=== PATIENT | female | born 1995 | race Two or more races ===

== ENCOUNTER → 2017-06-30 | Outpatient (CLI) | payer OTHER | END | disposition home or self-care (01) | LOC: PPHC LAB 15:42 | DX: Z02.89 Encounter for other administrative examinations (principal) ==

== ENCOUNTER 2018-07-27 07:12 | Outpatient (CLI) | payer OTHER | END 2018-07-27 16:00 | disposition home or self-care (01) | LOC: LAB 07:12 | DX: E03.8 Other specified hypothyroidism (principal); Z13.1 Encounter for screening for diabetes mellitus; E78.2 Mixed hyperlipidemia; E55.9 Vitamin D deficiency, unspecified; Z11.3 Encounter for screening for infections with a predominantly sexual mode of transmission; Z11.4 Encounter for screening for human immunodeficiency virus [HIV] ==

== ENCOUNTER 2018-08-24 06:24 | Outpatient (CLI) | payer OTHER | END 2018-08-24 14:59 | disposition home or self-care (01) | LOC: LAB 06:24 | DX: E28.2 Polycystic ovarian syndrome (principal); E11.9 Type 2 diabetes mellitus without complications; N91.2 Amenorrhea, unspecified; N92.1 Excessive and frequent menstruation with irregular cycle; E03.8 Other specified hypothyroidism ==

== ENCOUNTER 2018-10-31 10:39 | Outpatient (CLI) | payer OTHER | END 2018-10-31 10:44 | disposition home or self-care (01) | LOC: LAB 10:39 | DX: J11.1 Influenza due to unidentified influenza virus with other respiratory manifestations (principal); A49.3 Mycoplasma infection, unspecified site ==

== ENCOUNTER → 2019-05-07 08:59 | Outpatient (CLI) | payer OTHER | END | disposition home or self-care (01) | LOC: LAB 08:59 | DX: J11.1 Influenza due to unidentified influenza virus with other respiratory manifestations (principal); J20.0 Acute bronchitis due to Mycoplasma pneumoniae ==

== ENCOUNTER 2019-07-11 14:04 | Emergency (ER) | payer OTHER ==
[~2019-07-11] VITALS: Ht 172.7 cm; Wt 87.1 kg
== END 2019-07-11 20:52 | disposition home or self-care (01) ==
LOC: ER
DX: N83.291 Other ovarian cyst, right side (principal); N39.0 Urinary tract infection, site not specified

== ENCOUNTER 2019-10-05 12:37 | Emergency (ER) | payer OTHER ==
[~2019-10-05] VITALS: Ht 172.7 cm; Wt 86.2 kg
[2019-10-05] MEDS ORDERED: LEVOTHYROXINE25 MCG (12:42)
== END 2019-10-05 16:41 | disposition home or self-care (01) ==
LOC: ER 12:37
DX: J02.9 Acute pharyngitis, unspecified (principal); B96.0 Mycoplasma pneumoniae [M. pneumoniae] as the cause of diseases classified elsewhere; Z03.818 Encounter for observation for suspected exposure to other biological agents ruled out

== ENCOUNTER → 2019-11-11 15:36 | Outpatient (CLI) | payer OTHER ==
[~2019-11-11 15:36] MED LIST: LEVOTHYROXINE25 MCG
== END | disposition home or self-care (01) ==
LOC: RAD 15:36
PROVIDERS: ATTEND Chiropractor Sports Physician
DX: M46.02 Spinal enthesopathy, cervical region (principal); M46.04 Spinal enthesopathy, thoracic region

== ENCOUNTER 2019-12-28 08:56 | Outpatient (CLI) | payer OTHER | END 2019-12-28 15:00 | disposition home or self-care (01) | LOC: LAB 08:56 | PROVIDERS: ATTEND General Practice | DX: J11.1 Influenza due to unidentified influenza virus with other respiratory manifestations (principal); R05 Cough; Z20.828 Contact with and (suspected) exposure to other viral communicable diseases; R06.2 Wheezing; R50.9 Fever, unspecified ==

== ENCOUNTER → 2020-01-09 | Outpatient (CLI) | payer OTHER | END | disposition home or self-care (01) | LOC: RAD 11:51 | PROVIDERS: ATTEND General Practice | DX: M54.89 Other dorsalgia (principal) ==

== ENCOUNTER 2020-01-14 09:23 | Outpatient (CLI) | payer OTHER | END 2020-01-14 13:49 | disposition home or self-care (01) | LOC: LAB 09:23 | PROVIDERS: ATTEND General Practice | DX: E78.49 Other hyperlipidemia (principal); E55.9 Vitamin D deficiency, unspecified; R42 Dizziness and giddiness; N39.0 Urinary tract infection, site not specified; Z00.00 Encounter for general adult medical examination without abnormal findings ==

== ENCOUNTER 2020-01-29 14:42 | Outpatient (CLI) | payer OTHER | END 2020-01-29 15:00 | disposition home or self-care (01) | LOC: LAB 14:42 | PROVIDERS: ATTEND General Practice | DX: R05 Cough (principal); R06.02 Shortness of breath; Z03.818 Encounter for observation for suspected exposure to other biological agents ruled out; Z20.828 Contact with and (suspected) exposure to other viral communicable diseases; R50.9 Fever, unspecified ==

== ENCOUNTER 2020-02-12 13:25 | Outpatient (CLI) | payer OTHER | END 2020-02-12 13:26 | disposition home or self-care (01) | LOC: PPH VACUNA 13:25 | DX: Z23 Encounter for immunization (principal) ==

== ENCOUNTER → 2020-03-29 13:46 | Outpatient (CLI) | payer OTHER | END | disposition home or self-care (01) | LOC: LAB 13:46 | DX: Z20.828 Contact with and (suspected) exposure to other viral communicable diseases (principal) ==

== ENCOUNTER 2020-04-08 09:30 | Outpatient (CLI) | payer OTHER | END 2020-04-08 09:36 | disposition home or self-care (01) | LOC: LAB 09:30 | DX: Z20.828 Contact with and (suspected) exposure to other viral communicable diseases (principal) ==

== ENCOUNTER 2020-08-17 13:48 | Emergency (ER) | payer OTHER ==
[~2020-08-17] VITALS: Ht 172.7 cm; Wt 86.2 kg
== END 2020-08-17 17:05 | disposition home or self-care (01) ==
LOC: ER 13:48
DX: S61.422A Laceration with foreign body of left hand, initial encounter (principal); W26.0XXA Contact with knife, initial encounter; Y93.89 Activity, other specified; Y92.090 Kitchen in other non-institutional residence as the place of occurrence of the external cause; Y99.8 Other external cause status

== ENCOUNTER → 2020-09-17 08:05 | Outpatient (CLI) | payer OTHER | END | disposition home or self-care (01) | LOC: LAB 08:05 | PROVIDERS: ATTEND Internal Medicine | DX: Z20.828 Contact with and (suspected) exposure to other viral communicable diseases (principal) ==

== ENCOUNTER → 2020-09-19 06:10 | Outpatient (CLI) | payer OTHER | END | disposition home or self-care (01) | LOC: LAB 06:10 | PROVIDERS: ATTEND Obstetrics & Gynecology Maternal & Fetal Medicine | DX: E03.8 Other specified hypothyroidism (principal); D63.8 Anemia in other chronic diseases classified elsewhere; N30.90 Cystitis, unspecified without hematuria; E78.00 Pure hypercholesterolemia, unspecified; R73.9 Hyperglycemia, unspecified; K92.1 Melena; Z12.11 Encounter for screening for malignant neoplasm of colon; E55.9 Vitamin D deficiency, unspecified ==

== ENCOUNTER 2020-11-06 09:49 | Outpatient (CLI) | payer OTHER | END 2020-11-06 18:00 | disposition home or self-care (01) | LOC: LAB 09:49 | PROVIDERS: ATTEND Emergency Medicine Pediatric Emergency Medicine | DX: Z03.818 Encounter for observation for suspected exposure to other biological agents ruled out (principal) ==

== ENCOUNTER 2020-11-13 11:31 | Outpatient (CLI) | payer OTHER | END 2020-11-13 14:22 | disposition home or self-care (01) | LOC: LAB 11:31 | PROVIDERS: ATTEND Internal Medicine Pulmonary Disease | DX: J45.31 Mild persistent asthma with (acute) exacerbation (principal) ==

== ENCOUNTER 2021-02-23 08:00 | Outpatient (CLI) | payer OTHER | END 2021-02-23 08:30 | disposition home or self-care (01) | LOC: PPH VACUNA 08:00 | PROVIDERS: ATTEND Emergency Medicine Pediatric Emergency Medicine | DX: Z23 Encounter for immunization (principal) ==

== ENCOUNTER 2021-05-13 12:52 | Outpatient (CLI) | payer OTHER | END 2021-05-13 16:53 | disposition home or self-care (01) | LOC: LAB 12:52 | PROVIDERS: ATTEND General Practice | DX: R05.8 Other specified cough (principal); J11.1 Influenza due to unidentified influenza virus with other respiratory manifestations; R06.2 Wheezing; Z20.828 Contact with and (suspected) exposure to other viral communicable diseases ==

== ENCOUNTER 2021-05-26 13:22 | Emergency (ER) | payer OTHER ==
[~2021-05-26] VITALS: Ht 172.7 cm; Wt 93.0 kg
== END 2021-05-26 18:32 | disposition home or self-care (01) ==
LOC: ER 13:22
DX: J45.909 Unspecified asthma, uncomplicated (principal); R06.2 Wheezing

== ENCOUNTER 2021-07-21 13:19 | Outpatient (CLI) | payer OTHER | END 2021-07-21 13:20 | disposition home or self-care (01) | LOC: LAB 13:19 | PROVIDERS: ATTEND Emergency Medicine | DX: N91.2 Amenorrhea, unspecified (principal) ==

== ENCOUNTER 2021-07-21 17:50 | Emergency (ER) | payer OTHER ==
[~2021-07-21] VITALS: Ht 172.7 cm; Wt 99.8 kg
== END 2021-07-21 21:20 | disposition home or self-care (01) ==
LOC: ER 17:50
DX: R10.84 Generalized abdominal pain (principal)

== ENCOUNTER 2021-07-29 15:14 | Outpatient (CLI) | payer OTHER | END 2021-07-29 15:19 | disposition home or self-care (01) | LOC: RAD 15:14 | PROVIDERS: ATTEND Internal Medicine Pulmonary Disease | DX: J45.41 Moderate persistent asthma with (acute) exacerbation (principal); U07.1 COVID-19 ==

== ENCOUNTER 2021-09-09 07:09 | Outpatient (CLI) | payer OTHER | END 2021-09-09 07:10 | disposition home or self-care (01) | LOC: NUCLEAR 07:09 | PROVIDERS: ATTEND Surgery | DX: R10.9 Unspecified abdominal pain (principal); K30 Functional dyspepsia | CPT/HCPCS: 78226; A9510 ==

== ENCOUNTER → 2021-09-21 07:17 | Outpatient (CLI) | payer OTHER | END | disposition home or self-care (01) | LOC: LAB 07:17 | PROVIDERS: ATTEND Student in an Organized Health Care Education/Training Program | DX: Z34.01 Encounter for supervision of normal first pregnancy, first trimester (principal) ==

== ENCOUNTER 2021-10-15 10:40 | Outpatient (CLI) | payer OTHER | END 2021-10-15 12:54 | disposition home or self-care (01) | LOC: PRENATAL 10:40 | PROVIDERS: ATTEND Obstetrics & Gynecology Maternal & Fetal Medicine | DX: O36.80X0 Pregnancy with inconclusive fetal viability, not applicable or unspecified (principal); O99.280 Endocrine, nutritional and metabolic diseases complicating pregnancy, unspecified trimester; O99.891 Other specified diseases and conditions complicating pregnancy; Z3A.13 13 weeks gestation of pregnancy ==

== ENCOUNTER 2021-10-19 13:54 | Outpatient (CLI) | payer OTHER | END 2021-10-19 14:00 | disposition home or self-care (01) | LOC: LAB 13:54 | DX: E03.8 Other specified hypothyroidism (principal); I10 Essential (primary) hypertension ==

== ENCOUNTER 2021-12-01 08:12 | Outpatient (CLI) | payer OTHER | END 2021-12-01 09:25 | disposition home or self-care (01) | LOC: PRENATAL 08:12 | PROVIDERS: ATTEND Obstetrics & Gynecology Maternal & Fetal Medicine | DX: O35.0XX0 Maternal care for (suspected) central nervous system malformation in fetus, not applicable or unspecified (principal); O35.3XX0 Maternal care for (suspected) damage to fetus from viral disease in mother, not applicable or unspecified; O99.280 Endocrine, nutritional and metabolic diseases complicating pregnancy, unspecified trimester; Z3A.20 20 weeks gestation of pregnancy ==

== ENCOUNTER → 2021-12-04 11:58 | Outpatient (CLI) | payer OTHER | END | disposition home or self-care (01) | LOC: LAB 11:58 | PROVIDERS: ATTEND Internal Medicine | DX: E03.8 Other specified hypothyroidism (principal) ==

== ENCOUNTER 2022-01-04 07:39 | Outpatient (CLI) | payer OTHER | END 2022-01-04 07:50 | disposition home or self-care (01) | LOC: LAB 07:39 | PROVIDERS: ATTEND Internal Medicine | DX: E03.8 Other specified hypothyroidism (principal); I10 Essential (primary) hypertension ==

== ENCOUNTER 2022-01-13 15:56 | Emergency (ER) | payer OTHER ==
[~2022-01-13] VITALS: Ht 170.2 cm; Wt 101.6 kg
== END 2022-01-13 17:57 | disposition home or self-care (01) ==
LOC: ER 15:56
DX: T78.1XXA Other adverse food reactions, not elsewhere classified, initial encounter (principal); X58.XXXA Exposure to other specified factors, initial encounter

== ENCOUNTER 2022-01-27 08:00 | Outpatient (CLI) | payer OTHER | END 2022-01-27 08:05 | disposition home or self-care (01) | LOC: PPH VACUNA 08:00 | PROVIDERS: ATTEND Emergency Medicine Pediatric Emergency Medicine | DX: Z23 Encounter for immunization (principal) ==

== ENCOUNTER 2022-02-05 15:39 | Outpatient (CLI) | payer OTHER | END 2022-02-05 16:00 | disposition home or self-care (01) | LOC: LAB 15:39 | PROVIDERS: ATTEND Specialist | DX: Z34.00 Encounter for supervision of normal first pregnancy, unspecified trimester (principal) ==

== ENCOUNTER 2022-02-08 08:00 | Outpatient (CLI) | payer OTHER | END 2022-02-08 08:10 | disposition home or self-care (01) | LOC: LAB 08:00 | PROVIDERS: ATTEND Surgery | DX: Z34.01 Encounter for supervision of normal first pregnancy, first trimester (principal) ==

== ENCOUNTER 2022-02-19 13:44 | Outpatient (CLI) | payer OTHER | END 2022-02-19 15:01 | disposition home or self-care (01) | LOC: PRENATAL 13:44 | PROVIDERS: ATTEND Obstetrics & Gynecology Maternal & Fetal Medicine | DX: O26.849 Uterine size-date discrepancy, unspecified trimester (principal); O36.8199 Decreased fetal movements, unspecified trimester, other fetus; O99.280 Endocrine, nutritional and metabolic diseases complicating pregnancy, unspecified trimester; Z3A.32 32 weeks gestation of pregnancy ==

== ENCOUNTER 2022-02-25 11:46 | Outpatient (CLI) | payer OTHER | END 2022-02-25 11:47 | disposition home or self-care (01) | LOC: LAB 11:46 | PROVIDERS: ATTEND General Practice | DX: R05.9 Cough, unspecified (principal); R06.02 Shortness of breath; Z20.822 Contact with and (suspected) exposure to COVID-19 ==

== ENCOUNTER 2022-04-15 06:11 | Inpatient (IN) | payer OTHER ==
[~2022-04-15] VITALS: Ht 172.7 cm; Wt 105.2 kg
[2022-04-15] MEDS ORDERED: PRENATAL + DHA1 EAC1 (08:29)
[2022-04-17] MEDS ORDERED: IBUPROFEN800 MG PO (10:47)
[2022-04-17] MEDS ORDERED: RHOGAM ULTR1500 UNIT IM (10:49)
== END 2022-04-18 18:06 | disposition home or self-care (01) | DRG 788 ==
LOC: LDR 06:11 → OB/GYN 06:11 → LDR 06:36 → OB/GYN 04-16 01:22
PROVIDERS: ADMIT Specialist; ATTEND Specialist
PROC: 4A1HXCZ Monitoring of Products of Conception, Cardiac Rate, External Approach (ICD-10-PCS; 2022-04-15)
PROC: 10D00Z1 Extraction of Products of Conception, Low, Open Approach (ICD-10-PCS; principal; 2022-04-16)
DX: O62.0 Primary inadequate contractions (principal); Z3A.40 40 weeks gestation of pregnancy; Z37.0 Single live birth; Z20.822 Contact with and (suspected) exposure to COVID-19

== ENCOUNTER 2023-07-04 15:14 | Inpatient (IN) | payer OTHER ==
[~2023-07-04] VITALS: Ht 152.4 cm; Wt 86.2 kg
[~2023-07-04 15:14] MED LIST changes: +IBUPROFEN800 MG PO; +PRENATAL + DHA1 EAC1; +RHOGAM ULTR1500 UNIT IM
[2023-07-04] MEDS ORDERED: 0.9 % SODIUM CHLORIDE 1,000 ML IV ONE (16:30)
[2023-07-04 17:39] LABS: HEMATOCRIT 18.7 % (36.0-45.00); MEAN CELL VOLUME 92.5 fL (80.00-100.00); MEAN CORPUSCULAR HEMOGLOBIN 33.1 pg (27.00-32.0); MEAN CORPUSCULAR HGB CONC 35.7 g/dl (32.0-36.0); PLATELET COUNT 213 K/uL (150-450); RED BLOOD COUNT 2.02 M/uL (4.00-6.00); RED CELL DISTRIBUTION WIDTH 12.7 % (11.5-14.5)
[2023-07-04 17:42] LABS: HEMOGLOBIN 6.7 g/dL (12.0-15.00)
[2023-07-04 17:43] LABS: INR 0.96; PARTIAL THROMBOPLASTIN TIME 25.1 SECONDS (22.0-34.0); PROTHROMBIN TIME 10.1 SECONDS (9.0-11.5)
[2023-07-04 17:55] LABS: PH,URINE 5.5 (5.0-8.0); URINE APPEARANCE Clear; URINE BILIRRUBIN Negative (NEGATIVE); URINE BLOOD Large; URINE COLOR Yellow; URINE GLUCOSE Negative (NEGATIVE); URINE LEUKOCYTE Trace; URINE NITRATE Negative; URINE PROTEIN Negative (NEGATIVE); URINE UROBILINOGEN 0.2 E.U./dl
[2023-07-04 17:59] LABS: URINE BACTERIA 177.6 uL (0.0-1933); URINE EPITHELIAL CELLS 5.7 uL (0.0-38.8); URINE RBC 319.3 uL (0.0-20.8); URINE WBC 22.3 uL (0.0-23.2)
[2023-07-04 18:04] LABS: CALCIUM 8.7 mg/dL (8.5-10.1); CREATININE SERUM 0.79 mg/dL (0.55-1.02); GFR 85.45; POTASSIUM 3.51 mEq/L (3.5-5.1)
[2023-07-04] MEDS ORDERED: OxyCODONE HCL/APAP UD (PERCOCET) PO PRN (21:30)
[2023-07-05] MEDS ORDERED: ACETAMINOPHEN 500 MG GEL..CAP PO PRN (08:15)
[2023-07-05] MEDS ORDERED: HYPERRHO S-1500 UNIT IM (08:38)
[2023-07-05] MEDS ORDERED: FF) RHO(D) IMMUNE GLOBULIN (POM) IM ONE (08:45)
[2023-07-05] MEDS ORDERED: FERROUS SULFATE 325 MG TABLET.EC PO SCH (09:00)
[2023-07-05 13:46] LABS: T4 FREE 0.85 NG/ML (0.76-1.46); TSH 4.83 uIU/mL (0.358-3.74)
[2023-07-06] MEDS ORDERED: MAGNESIUM HYDROXIDE 30 ML BLIST.PACK PO ONE (13:00)
[2023-07-06] MEDS ORDERED: MINERAL OIL 30 ML BLIST.PACK PO ONE (13:00)
[2023-07-06 18:52] LABS: HEMATOCRIT 28.3 % (36.0-45.00); HEMOGLOBIN 9.9 g/dL (12.0-15.00); MEAN CORPUSCULAR HEMOGLOBIN 30.7 pg (27.00-32.0); PLATELET COUNT 240 K/uL (150-450); RED BLOOD COUNT 3.22 M/uL (4.00-6.00); RED CELL DISTRIBUTION WIDTH 14.5 % (11.5-14.5)
[2023-07-07] MEDS ORDERED: LEVOTHYROXINE SODIUM 50 MCG TABLET PO SCH (06:00)
[2023-07-07] MEDS ORDERED: SYNTHROID50 MCG PO (07:36)
[2023-07-07] MEDS ORDERED: FERROUS SULFAT325 MG PO (07:36)
== END 2023-07-07 12:54 | disposition home or self-care (01) | DRG 779 ==
LOC: ER 15:14 → OB/GYN 20:04
PROVIDERS: General Practice; ADMIT Specialist; ATTEND Specialist
PROC: BU4CZZZ Ultrasonography of Uterus and Ovaries (ICD-10-PCS; principal; 2023-07-04)
PROC: 30233N1 Transfusion of Nonautologous Red Blood Cells into Peripheral Vein, Percutaneous Approach (ICD-10-PCS; 2023-07-05)
DX: O03.6 Delayed or excessive hemorrhage following complete or unspecified spontaneous abortion (principal); O03.89 Complete or unspecified spontaneous abortion with other complications; D64.9 Anemia, unspecified; Z20.822 Contact with and (suspected) exposure to COVID-19; J45.909 Unspecified asthma, uncomplicated; E03.9 Hypothyroidism, unspecified

== ENCOUNTER 2023-07-07 17:14 | Emergency (ER) | payer OTHER ==
[~2023-07-07] VITALS: Ht 172.7 cm; Wt 86.2 kg
[~2023-07-07 17:14] MED LIST changes: +FERROUS SULFAT325 MG PO; +HYPERRHO S-1500 UNIT IM; +SYNTHROID50 MCG PO
[2023-07-07] MEDS ORDERED: 0.9 % SODIUM CHLORIDE 1,000 ML IV SCH (18:00)
[2023-07-07 18:50] LABS: HEMATOCRIT 29.7 % (36.0-45.00); HEMOGLOBIN 10.4 g/dL (12.0-15.00); MEAN CELL VOLUME 88.5 fL (80.00-100.00); MEAN CORPUSCULAR HEMOGLOBIN 30.9 pg (27.00-32.0); MEAN CORPUSCULAR HGB CONC 34.9 g/dl (32.0-36.0); PLATELET COUNT 288 K/uL (150-450); RED BLOOD COUNT 3.36 M/uL (4.00-6.00); RED CELL DISTRIBUTION WIDTH 13.9 % (11.5-14.5)
[2023-07-07 19:13] LABS: ALBUMIN 3.4 gm/dL (3.4-5.0); BILIRUBIN TOTAL 0.24 mg/dL (0.3-1.2); CALCIUM 8.8 mg/dL (8.5-10.1); CREATININE SERUM 0.98 mg/dL (0.55-1.02); GFR 66.64; GLOBULINA 3.7 G/DL (2.4-3.5); TOTAL PROTEIN 7.1 gm/dL (6.4-8.2)
[2023-07-07 19:16] LABS: INR 1.01; PARTIAL THROMBOPLASTIN TIME 27.1 SECONDS (22.0-34.0); PROTHROMBIN TIME 10.6 SECONDS (9.0-11.5)
[2023-07-07] MEDS ORDERED: OXYTOCIN 20 UNITS/1000ML RL PIGGYBAG IV ONE (21:15)
== END 2023-07-08 01:59 | disposition home or self-care (01) ==
LOC: ER 17:14
PROVIDERS: General Practice
DX: N93.9 Abnormal uterine and vaginal bleeding, unspecified (principal)